=== PATIENT | male | born 1965 | race Caucasian/White ===

== ENCOUNTER → 2016-12-29 | Outpatient (CLI) | payer BC | LOC: GMA 16:27 | PROVIDERS: ATTEND Nurse Practitioner Family | DX: R53.82 Chronic fatigue, unspecified (principal) ==

== ENCOUNTER → 2017-01-01 | Outpatient (CLI) | payer BC ==
--- NOTE | 2017-01-04 09:54 | US ---
EXAM DESCRIPTION: Soft Tissue,Extremity CLINICAL HISTORY: 51 years, Male, MASS COMPARISON: None. FINDINGS: Scanning performed in the left leg posterior mid thigh region. In the area of the perceived mass there is a smooth oval 5.6 x 2.0 x 6.3 cm avascular lesion. This has sonographic features compatible with lipoma. IMPRESSION: Mass in the posterior left thigh has sonographic features of a lipoma . It should be safe to follow this lesion clinically. If clinical findings become more worrisome additional imaging can be obtained Electronically signed by: Magdaleno Hinton MD 01/04/2017 9:52 AM CDT
--- NOTE | 2017-01-04 10:06 | MRI ---
EXAM DESCRIPTION: Brain w/wo Contrast CLINICAL HISTORY: 51 years, Male, 257.2 elevated testosterone levels COMPARISON: None. FINDINGS: Standard triplanar sequences. Contrast enhanced sequences. Thin cuts through the pituitary gland. The diffusion-weighted sequence does not show acute infarct. Ventricles and sulci within normal limits. No abnormal contrast enhancement on the standard brain sequences. Dedicated views of the pituitary gland show normal enhancement without suspicious lesion. The coronal cross-section dimensions of the pituitary gland are 4.4 mm in height by about 1.0 cm in width. There is some mild ethmoid sinus mucosal thickening. IMPRESSION: 1. No acute infarct or mass in the brain. No abnormal contrast enhancement 2. Normal appearance of the pituitary gland without suspicious mass. Appropriate size of the gland. No abnormal contrast enhancement of the pituitary. Electronically signed by: Magdaleno Hinton MD 01/04/2017 10:04 AM CDT
== END | disposition home or self-care (01) ==
LOC: US 09:00
PROVIDERS: ATTEND Family Medicine
DX: E29.1 Testicular hypofunction (principal)

== ENCOUNTER → 2017-01-22 | Outpatient (CLI) | payer BC | LOC: GMAM 10:40 | PROVIDERS: ATTEND Family Medicine | DX: E03.9 Hypothyroidism, unspecified (principal); Z12.5 Encounter for screening for malignant neoplasm of prostate ==

== ENCOUNTER 2017-04-19 04:47 | Day surgery (SDC) | payer BC ==
[2017-04-19] MEDS ORDERED: LACTATED RINGERS 1,000 ML ONE (06:38)
[2017-04-19] MEDS ORDERED: LIDOCAINE 1% 10 ML VIAL INJ ONE (12:00)
[2017-04-19] MEDS ORDERED: PROPOFOL 200 MG/20 ML VIAL IV ONE (12:00)
[2017-04-19] MEDS ORDERED: MIDAZOLAM INJ 2 MG/2 ML VIAL ONE (12:13)
[2017-04-19] MEDS ORDERED: fentaNYL CITRATE INJ 50 MCG/ML AMP ONE (12:14)
[2017-04-19] MEDS ORDERED: ELECTROLYTE-A 1,000 ML IVS ONE (13:31)
--- NOTE | 2017-04-19 13:51 | OP ---
DATE OF PROCEDURE: 04/19/17 PREOPERATIVE DIAGNOSIS: 1. Age greater than 50 with need for screening colonoscopy. POSTOPERATIVE DIAGNOSIS: 1. Cauliflower appearing colon mass in the proximal transverse colon. 2. Small 6 mm polyp in the descending colon. 3. Colonoscopy completed to the cecum with good visualization. No other masses or lesions noted. PROCEDURE: 1. Colonoscopy. SURGEON: Kennedy Mario MD ANESTHESIA: Per Tee Merlos CRNA. COMPLICATIONS: None apparent. ESTIMATED BLOOD LOSS: Less than 10 mL. TECHNIQUE: The patient was brought to the GI lab and laid in the left lateral decubitus position. Digital rectal exam was performed and found to be normal. The prostate was normal in size. The colonoscope was inserted into the rectum and slowly through to the transverse colon and the proximal transverse colon. Just before we made the turn to the ascending colon, there was a fairly large appearing cauliflower looking lesion. The scope was advanced passed this lesion easily and on into the cecum with good visualization of the cecum. No masses were found there. The scope was then withdrawn back to the area with the cauliflower lesion. This was confirmed to be in the proximal transverse colon. Multiple straight forceps biopsies were taken from this lesion and a loop biopsy was also taken. The lesion was too big for complete excision. The area around the lesion was tattooed. Good hemostasis was noted. The scope was then withdrawn back into the descending colon. About midway through the descending colon, another polyp was noted. This was small, 4 mm in size, and was removed with straight forceps biopsy. Good hemostasis was noted. The scope was withdrawn into the rectum. In the rectum, retroflexion was attempted twice, unsuccessfully. The passageway was narrow and we decided the best course of action there was to withdraw slowly. I do feel like we had very good visualization of the rectum with no masses or lesions noted there. The scope was withdrawn. The patient tolerated the procedure well. He will be discharged home when he is cleared from an anesthesia standpoint. He will followup in one week for the pathology report and most probably will need surgical excision of this lesion in the colon. #[id number] [facility]
[2017-04-19 14:58] VITALS: O2SAT 98
[2017-04-19 15:04] VITALS: BP 124/82; TEMP 98.4
== END 2017-04-19 14:55 | disposition home or self-care (01) ==
LOC: AMB 04:47
PROVIDERS: ATTEND Family Medicine
DX: Z12.11 Encounter for screening for malignant neoplasm of colon (principal); D37.4 Neoplasm of uncertain behavior of colon; D12.4 Benign neoplasm of descending colon; K63.89 Other specified diseases of intestine; E03.9 Hypothyroidism, unspecified; E78.2 Mixed hyperlipidemia; F17.220 Nicotine dependence, chewing tobacco, uncomplicated; Z88.0 Allergy status to penicillin; Z79.899 Other long term (current) drug therapy
CPT/HCPCS: 00810; 45380; J2250; J3010; J3490; J7120

== ENCOUNTER → 2017-04-22 | Outpatient (CLI) | payer BC ==
--- NOTE | 2017-04-22 09:18 | CT ---
EXAM DESCRIPTION: Abdomen/Pelvis w/wo Contrast CLINICAL HISTORY: MASS OF COLON COMPARISON: February 07, 2010 TECHNIQUE: CT of the abdomen and Pelvis was performed with and without IV contrast. This exam was performed according to our departmental dose-optimization program, which includes automated exposure control, adjustment of the mA and/or kV according to patient size and/or use of iterative reconstruction technique. FINDINGS: Pre-IV contrast images show no lung base abnormality. There are few tiny calcified gallstones in the gallbladder without pericholecystic inflammation or fluid. No urinary tract calculus. Following IV contrast demonstration, no abdominal aortic aneurysm or dissection is identified. There is no pneumoperitoneum, ascites or adenopathy. The liver, spleen, pancreas, adrenals and kidneys are unremarkable. No dilated small bowel loops or mesenteric inflammation. No bladder wall thickening. There is occasional colonic diverticulosis without diverticulitis. No colonic wall thickening or mass is identified. The appendix is not seen, correlate with surgical history. No evidence of appendicitis. No concerning bone lesion. IMPRESSION: Colonic diverticulosis, but no diverticulitis or apparent colonic mass. Cholelithiasis without CT evidence of cholecystitis. If clinically suspicious, ultrasound is suggested. Electronically signed by: Pernell Tompkins MD 04/22/2017 9:17 AM ELECTRONIC SCALE ASSEMBLER AND TESTER
== END | disposition home or self-care (01) ==
LOC: CT 08:18
PROVIDERS: ATTEND Family Medicine
DX: K57.90 Diverticulosis of intestine, part unspecified, without perforation or abscess without bleeding (principal); K80.20 Calculus of gallbladder without cholecystitis without obstruction

== ENCOUNTER → 2017-04-23 | Outpatient (CLI) | payer BC | END | disposition home or self-care (01) | LOC: LAB.O 14:08 | PROVIDERS: ATTEND Family Medicine | DX: D49.0 Neoplasm of unspecified behavior of digestive system (principal) ==

== ENCOUNTER 2017-04-30 05:45 | Inpatient (IN) | payer BC ==
[2017-04-30] MEDS ORDERED: SODIUM CHL 0.9% 100ML MINI-BAG 100 ML IVPB ONE (07:13)
[2017-04-30] MEDS ORDERED: cefOXitin SODIUM 2 GM INJ IVPB ONE ×3 (07:13→20:12)
[2017-04-30] MEDS ORDERED: LACTATED RINGERS 1,000 ML ONE (07:13)
[2017-04-30] MEDS ORDERED: MIDAZOLAM INJ 5 MG/5 ML VIAL ONE (10:29)
[2017-04-30] MEDS ORDERED: fentaNYL CITRATE INJ 50 MCG/ML AMP ONE (10:29)
[2017-04-30] MEDS ORDERED: SUCCINYLCHOLINE CHLORIDE 200 MG/10 ML VIAL ONE (10:37)
[2017-04-30] MEDS ORDERED: LIDOCAINE 1% 10 ML VIAL INJ ONE (11:00)
[2017-04-30] MEDS ORDERED: raNITIdine HCL INJ 25 MG/ML VIAL IV ONE (11:00)
[2017-04-30] MEDS ORDERED: METOCLOPRAMIDE HCL INJ 10 MG/2 ML VIAL IV ONE (11:00)
[2017-04-30] MEDS ORDERED: VECURONIUM BROMIDE 10 MG VIAL IV ONE (11:00)
[2017-04-30] MEDS ORDERED: WATER FOR INJ 10 ML VIAL INJ ONE (11:00)
[2017-04-30] MEDS ORDERED: PROPOFOL 200 MG/20 ML VIAL IV ONE (11:00)
[2017-04-30] MEDS ORDERED: KETOROLAC TROMETHAMINE INJ 30 MG/ML VIAL IV ONE (11:00)
[2017-04-30] MEDS ORDERED: SODIUM CHLORIDE 0.9% 50 ML VIAL INJ ONE (11:00)
[2017-04-30] MEDS ORDERED: DEXAMETHASONE INJ 10 MG/ML VIAL IV ONE (11:00)
[2017-04-30] MEDS ORDERED: PHENYLEPHRINE INJ 1ML 10 MG/ML VIAL IV ONE (11:00)
--- NOTE | 2017-04-30 11:13 | HP ---
CHIEF COMPLAINT: Colon polyp and cholelithiasis. HISTORY OF PRESENT ILLNESS: The patient is a 51-year-old male who underwent a colonoscopy for screening at age 51. He was found to have a polyp estimated to be 3 to 4 cm by the endoscopist, Dr. Mario. Biopsies revealed high-grade dysplasia. He was brought to the Surgical Suite today for a colectomy, most a right hemicolectomy. He was also found during the workup to have cholelithiasis and since the tumor is said to be in the hepatic flexure of the colon and this area will have been operated, we will perform a cholecystectomy after the colectomy. He has had no history of blood in his stool or change in his bowel habits or weight loss. He also denies symptoms associated with biliary colic or cholecystitis. PAST MEDICAL HISTORY: 1. Hypertension. 2. Hypothyroidism. 3. Proteinuria. 4. Vitamin D deficiency. PAST SURGICAL HISTORY: 1. Appendectomy. 2. Umbilical hernia repair last year. CURRENT MEDICATIONS: 1. Synthroid. 2. Nasonex. 3. Previously on testosterone supplement. ALLERGIES: PENICILLIN. FAMILY HISTORY: Positive only for diverticular disease. Specifically, there were never any GI malignancies to his knowledge. SOCIAL HISTORY: The patient is . He has never smoked, but has used oral tobacco for years. He is trying to stop. There is no history of alcohol abuse or illicit drugs. REVIEW OF SYSTEMS: Noncontributory except as in the history of present illness. There are no urinary symptoms, upper respiratory symptoms, no chest pain or shortness of breath. PHYSICAL EXAMINATION: GENERAL: The patient is awake, alert, cooperative, and mildly anxious. VITAL SIGNS: The patient is currently afebrile. HEENT: Sclerae nonicteric. Mucous membranes moist. NECK: Without adenopathy. BACK: Without CVA tenderness. CHEST: Equal breath sounds bilaterally and are clear. HEART: Regular rate and rhythm. ABDOMEN: Soft, mildly distended. There is no significant tenderness or mass. RECTAL: Deferred. EXTREMITIES: Without cyanosis, clubbing or edema. LABORATORY: Normal liver function tests. Creatinine 1.17, glucose 157, potassium 4.1. Hemoglobin 16.9, white count 7.7, platelet count 306,000. He had a normal differential with 62% neutrophils. Urinalysis was clear with specific gravity 1.015. No protein or sugar. ASSESSMENT: 1. Polyp of the colon with severe dysplasia. 2. Cholelithiasis, asymptomatic. PLAN: The cholelithiasis is asymptomatic, but is in the area of the operation for the colon and we will proceed with both colectomy and cholecystectomy. He has undergone an antibiotic and mechanical bowel prep as an outpatient. #[id number] [facility]ITAL[facility]abel[facility]
[2017-04-30] MEDS ORDERED: HYDROmorphone HCL INJ 2 MG/ML VIAL ONE (11:20)
[2017-04-30] MEDS ORDERED: ELECTROLYTE A IVS ONE (11:31)
[2017-04-30] MEDS ORDERED: ELECTROLYTE-A 1,000 ML IVS ONE ×3 (12:47→15:26)
[2017-04-30] MEDS ORDERED: KETAMINE HCL 100 MG/ML VIAL ONE (14:55)
[2017-04-30] MEDS ORDERED: ROCURONIUM BROMIDE 10 MG/ML VIAL ONE (15:26)
[2017-04-30] MEDS ORDERED: SUGAMMADEX SODIUM 200 MG/2 ML VIAL IV ONE (15:43)
[2017-04-30] MEDS ORDERED: HYDROcodone 5MG/APAP 325MG 1 EA TAB PO PRN (16:04)
[2017-04-30] MEDS ORDERED: ONDANSETRON INJ 4 MG/2 ML VIAL IV PRN (16:06)
--- NOTE | 2017-04-30 16:58 | OP ---
DATE OF PROCEDURE: 04/30/17 PREOPERATIVE DIAGNOSIS: 1. Right colon polyp felt hepatic flexure. 2. Cholelithiasis. POSTOPERATIVE DIAGNOSIS: 1. Right colon polyp felt hepatic flexure. 2. Cholelithiasis. 3. Chronic cholecystitis. SURGICAL PROCEDURE: 1. Exploratory laparotomy. 2. Right hemicolectomy with ileotransverse colostomy. 3. Cholecystectomy with intraoperative cholangiography. SURGEON: Yogi Betancourt M.D. WHITEPRINTING MACHINE OPERATOR: None. ANESTHESIA: General endotracheal anesthesia. INDICATION FOR SURGERY: The patient is a 51 year-old male who on screening colonoscopy was found to have a mass which was felt to be at the hepatic flexure. 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 He also was found on a CT scan to have cholelithiasis and due to the fact that the surgery was going to be in the area of the gallbladder, it was felt that it was appropriate to do cholecystectomy also. So after the risks, benefits, and alternatives to the procedures and an antibiotic mechanical bowel prep was performed as an outpatient, the patient was brought to the Surgical Suite this morning for the procedures. FINDINGS AT TIME OF PROCEDURE: The mass and tattoo were noted at the hepatic flexure. They were measured from the cut specimen 7 cm from the distal margin. There were adhesions in the right lower quadrant from an appendectomy. The gallbladder had a mildly thickened wall and multiple small stones. Intraoperative cholangiography revealed free flow into the duodenum with no filling defects or strictures noted. No lesions were palpated or visualized in the liver. DESCRIPTION OF PROCEDURE: After adequate general endotracheal anesthesia was obtained the patient was prepped and draped in the usual sterile manner. A Eastman catheter was placed. A nasogastric tube was placed. A surgical time out was taken and then a midline incision was made from just below the xiphoid process to above the umbilicus trying to stay above his previous umbilical hernia repair. Dissection was carried down through the skin with a knife and then dissection of the subcutaneous tissue using electrocautery. The midline fascia was scored using electrocautery. The peritoneum was then elevated, opened and then divided for the length of the incision. When this was done, the abdomen was inspected with the previously noted findings. A Bookwalter retractor was then placed and the right colon was inspected. The lesion was identified both by palpation and by the tattoo. The area just proximal to the middle colic artery was identified. It was cleaned using electrocautery and blunt dissection and then a 0.5 inch Rajat drain was placed around the colon at that area for traction. When this was done, dissection was carried up where the colon was dissected free from the duodenum using clamps and ligatures of #2- 0 Vicryl and #3-0 Vicryl. The white line of Toldt was divided using electrocautery. At this point, the line of resection for the distal ileum was identified. It likewise was cleaned of mesentery using blunt dissection and it was divided using the GI stapling device. When this was done, the mesentery was taken down using clamps and ligatures of #2-0 Vicryl and #3-0 Vicryl and a suture ligature for the right colic artery. When this was done, the colon was divided at the previously identified space and the specimen was sent for pathological evaluation. The wound was noted to have adequate hemostasis. At this point the patient was placed in the reverse Trendelenburg position. Clamp were placed on the gallbladder after retractors were placed and the gallbladder was retracted laterally. The triangle of Calot was explored. The cystic artery was identified, clipped twice proximally and once distally and divided. Then the cystic duct was dissected free and clipped proximally. A small incision was made in the cystic duct. A cholangiogram catheter was introduced into the cystic duct and clipped in placed. Cholangiograms are then taken using fluoroscopy which revealed free flow into the duodenum with no filling defects or strictures noted. The cystic duct catheter was removed. The cystic duct was hemoclipped three times distally and divided between the hemoclips. The gallbladder was then dissected free from the gallbladder bed of the liver using electrocautery and blunt dissection. It was sent for pathologic evaluation. The gallbladder bed of the liver was inspected. There was good hemostasis noted. The bed of the humberto hepatis was inspected. There was no bile leak or bleeding noted. There was some bile staining from the small amount of bile leak from the gallbladder when the clip fell off the proximal cystic duct and this was irrigated and aspirated until there was no significant bile staining left. We irrigated over the liver and the subhepatic space. The anastomosis was then performed in the usual manner, an [id number] functional end-to-end isoperistaltic anastomosis. The bowel was stapled and then the enterostomy was closed with a running Salinas stitch of #3-0 Monocryl and interrupted Lambert sutures of #309 Prolene. When this was done, the mesentery was close with a running #3-0 Monocryl suture. The abdomen was then irrigated copiously with saline as was the right upper quadrant, the right lower quadrant and the anastomosis. The aspirate was noted to be clear. The nasogastric tube was checked for position in the stomach and at this point the midline fascia was closed with a running PDS from above and below with internal retention sutures of #1-0 Vicryl placed intermittently. The subcutaneous tissue was irrigated with saline. The skin edge was approximated with a skin stapler. Sterile pressure dressing was applied and an abdominal binder was applied. The patient was awakened and taken to the recovery room in stable condition. Estimated blood loss was approximately 250 to 300 mL. All sponge, needle and instrument counts were correct. #[id number] [facility]
[2017-04-30] MEDS: MORPHINE SULFATE INJ 10 MG/ML VIAL IV PRN ×3 (17:10→22:09)
[2017-04-30] MEDS: PANTOPRAZOLE SODIUM IV 40 MG VIAL IV SCH (17:54)
[2017-04-30] MEDS: DEX 5% W/NACL 0.45% 1000ML 1,000 ML IVS PRN (17:54)
[2017-04-30] MEDS ORDERED: SODIUM CHL 0.9% 50ML MIN-BAG+ 50 ML IVPB ONE (20:19)
[2017-04-30] MEDS: cefOXitin SODIUM 2 GM in SODIUM CHL 0.9% 50ML MIN-BAG+ 50 ML IVPB SCH (21:52)
[2017-05-01] MEDS: MORPHINE SULFATE INJ 10 MG/ML VIAL IV PRN ×7 (00:52→22:53)
[2017-05-01] MEDS: DEX 5% W/NACL 0.45% 1000ML 1,000 ML IVS PRN ×4 (02:02→20:19)
[2017-05-01] MEDS ORDERED: SODIUM CHL 0.9% 50ML MIN-BAG+ 50 ML IVPB ONE (05:27)
[2017-05-01] MEDS ORDERED: cefOXitin SODIUM 2 GM INJ IVPB ONE ×2 (05:28→13:35)
[2017-05-01] MEDS: cefOXitin SODIUM 2 GM in SODIUM CHL 0.9% 50ML MIN-BAG+ 50 ML IVPB SCH ×2 (05:33→13:47)
[2017-05-01] MEDS: SODIUM CHLORIDE 0.9% (FLUSH) 10 ML SYG IV PRN ×6 (08:05→22:53)
[2017-05-01] MEDS: ENOXAPARIN SODIUM 40 MG/0.4 ML SYG SUBCU SCH (09:41)
[2017-05-01] MEDS: IV SET AND CAP CHANGE INJ INJ SCH (09:42)
--- NOTE | 2017-05-01 09:54 | PCM.CORE ---
Physician DVT/VTE - Nurse DVT Assessment & Total Each Risk Factor Represents 2 Points: Malignancy (present/past), Major Surgery > 45 minutes Each Risk Factor Represents 1 Point: Age 41-60 Each Risk Factor is 1 Point: Obesity (BMI >25) DVT Assessment Score: 6 - 5 or more Very High Risk Treatments: Early Ambulation *, Sequential Compression Device Pharmacological: Enoxaparin 40mg SQ Daily
[2017-05-01] MEDS ORDERED: SODIUM CHLORIDE 0.9% 50ML 50 ML ONE (13:37)
--- NOTE | 2017-05-01 14:44 | CONS ---
DATE OF CONSULTATION: 05/01/17 HISTORY OF PRESENT ILLNESS: Mr. Avitia is a 51 year-old male patient who just recently had a coloscopy for screening at age 51. During the colonoscopy he was found to have a polyp that was measured between 3 to [address] Mario. Biopsies that were taken revealed a high grade dysplasia. The patient was seen by Dr. Betancourt and was taken to the Operating Room on 04/30/17 for an exploratory laparotomy. The patient had a right hemicolectomy and ileotransverse colostomy as well as cholecystectomy. He has a history of hypertension and hypothyroidism. Dr. Betancourt requested consultation to help manage the patient postoperatively in regards to his blood pressure. The patient was seen the day after surgery in stable condition. PAST MEDICAL HISTORY: 1. Hypertension. 2. Hypothyroidism. 3. Vitamin D deficiency. 4. History of diverticulitis. PAST SURGICAL HISTORY: 1. Appendectomy. 2. Umbilical hernia repair in 2016. CURRENT MEDICATIONS: 1. Levothyroxine 50 mcg daily. 2. Testosterone 200 mg IM weekly. 3. Nasacort 24 hour daily. ALLERGIES: PENICILLIN. FAMILY HISTORY: Positive for diverticular disease. No mention of history of colon cancers in immediate family. Father at age 72 secondary to complications from infection of a port. Also it was noted that type 2 diabetes mellitus and coronary artery disease. SOCIAL HISTORY: The patient is . He lives in [place], [place]. 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 He has no history of smoking tobacco but has used smokeless tobacco in the past for multiple years. He has no history of illicit drug use or alcohol abuse. REVIEW OF SYSTEMS: Noncontributory except as noted in History of Present Illness. PHYSICAL EXAMINATION: VITAL SIGNS: Temperature 97.6, pulse 110, blood pressure 124/72, respirations 20, satting 97% on nasal cannula at rest. GENERAL: The patient appears to be comfortable in no acute distress. He is alert and oriented. HEENT: Tympanic membranes are clear bilaterally. Oropharynx is pink and moist. There is an NG tube in place to low suction. NECK: Supple, non-tender with full range of motion. CHEST: Clear to auscultation without any rhonchi, wheezing or rales. HEART: Regular rate and rhythm without appreciable murmurs, gallops, or rubs. ABDOMEN: Has an abdominal binder in place. Bowel sounds were distant but present. He is utilizing splinting technique but denies any nausea or vomiting. EXTREMITIES: No clubbing, cyanosis or edema. NEUROLOGIC: He is alert and oriented times three. LABORATORY: Preoperative H&H was 16.9, hematocrit 49.0, platelet count 306,000 postoperatively. Hemoglobin was 14.4, hematocrit 42.8, initial white count was 7,700 with a postoperative white count of 15,100 with differential showing to be within normal limits and then a slight left shift after surgery. Chemistries on admission showed sodium 134, otherwise electrolytes were within normal limits. BUN 15, creatinine 1.17. Liver functions showed to be within normal limits. Postoperatively his electrolytes were within normal limits. Sodium 136, potassium 4.4, BUN 15, creatinine 1.15. Liver functions showed just a slight elevation of AST at 66. Urinalysis on admission showed to be within normal limits. No microbiology specimens were submitted. RADIOLOGY: No radiographic studies were available for review. ASSESSMENT: 1. Polyp of the colon with severe dysplasia requiring surgery with exploratory laparotomy and a right hemicolectomy with ileotransverse colostomy with additional cholecystectomy performed by Dr. Betancourt with pathology pending. 2. Cholelithiasis, asymptomatic as noted on initial CT studies with the patient having a cholecystectomy. 3. History of hypertension. 4. History of hypothyroidism on supplementation. 5. Seasonal allergies. PLAN: Will follow the patient as he progresses through his postoperative phase. Defer pain management and surgical decisions through postoperative management with Dr. Betancourt. Will continue to monitor the patient's vital signs and I's and O's closely and manage as needed. The patient is already started on a clear liquid diet. His NG tube is able to be clamped. He has been encouraged to ambulate. He is encouraged to do pulmonary toiletry to prevent any complications postoperatively. Anticipate length of stay to be at least 3 to 5 days pending clinical improvement and ultimately discharge decision per Dr. Betancourt. Until discharge, will continue to monitor and treat appropriately. Once discharged, he will need followup both with Dr. Betancourt and Dr. Mario as scheduled. #[id number] [facility]
[2017-05-01] MEDS: PANTOPRAZOLE SODIUM IV 40 MG VIAL IV SCH (16:38)
[2017-05-02] MEDS: SODIUM CHLORIDE 0.9% (FLUSH) 10 ML SYG IV PRN ×3 (02:05→21:10)
[2017-05-02] MEDS: MORPHINE SULFATE INJ 10 MG/ML VIAL IV PRN ×6 (02:06→21:10)
[2017-05-02] MEDS: DEX 5% W/NACL 0.45% 1000ML 1,000 ML IVS PRN ×3 (04:26→21:10)
[2017-05-02] MEDS: ENOXAPARIN SODIUM 40 MG/0.4 ML SYG SUBCU SCH (08:07)
[2017-05-02] MEDS ORDERED: MAGNESIUM HYDROXIDE 30 ML UD NG ONE (12:13)
[2017-05-02] MEDS: PANTOPRAZOLE SODIUM IV 40 MG VIAL IV SCH (16:10)
--- NOTE | 2017-05-02 17:43 | PN ---
DATE: 05/02/17 SUPERVISING PHYSICIAN: Jeff Marrero M.D. SUBJECTIVE: The patient remains afebrile. He has been ambulating multiple times. He has not passed any gas yet. He has had no nausea or vomiting. The NG tube remains in place. OBJECTIVE: VITAL SIGNS: Temperature 97.2, pulse 102, blood pressure 158/90, respirations 18, satting 94% on room air. I's and O's show a positive balance of 2321 with 4296 in, 1975 out. Weight 103.1 kg. CHEST: Lungs are clear to auscultation. HEART: Regular rate and rhythm. ABDOMEN: Abdominal binder remains in place but bowel sounds are present. EXTREMITIES: No clubbing, cyanosis or edema. NEUROLOGIC: He is alert and oriented times three. LABORATORY: White count is down to 14,400, hemoglobin 14.1, hematocrit 42.1, platelet count 250,000. Differential continues to show a small left shift. Chemistries show sodium 134, potassium 4.1, BUN 14, creatinine 1.0, glucose 128. AST is down to 51, all other liver functions showed to be within normal limits. ASSESSMENT: 1. Status post exploratory laparotomy and right hemicolectomy with ileotransverse colostomy with an additional cholecystectomy, postoperative day [address] Betancourt for a polyp of the colon showing severe dysplasia with pathology pending. 2. Cholelithiasis, asymptomatic as noted on initial CT study with the patient having a cholecystectomy, postoperative day 2. 3. History of hypertension not on any chronic hypertensive medications showing persistent mild hypertension likely secondary to postoperative fluid imbalance needing continued close monitoring. 4. History of hypothyroidism on supplementation. 5. Seasonal allergies. PLAN: Will continue to follow the patient closely. Will defer postsurgical management and fluid balance to Dr. Betancourt, and closely monitor vital signs. He may need some medication for hypertension, however hopefully with a shift in fluids and better fluid balance in the next 24 hours his blood pressure will show some improvement. He has been walking. His NG tube will be clamped today. He is going to get a dose of Milk of Magnesia. Will follow the patient closely and monitor his labs in the morning. Anticipate discharge at Dr. Betancourt' s discretion. Until then, continue to monitor and treat appropriately. #[id number] [facility]
[2017-05-03] MEDS: SODIUM CHLORIDE 0.9% (FLUSH) 10 ML SYG IV PRN ×3 (02:41→20:40)
[2017-05-03] MEDS: MORPHINE SULFATE INJ 10 MG/ML VIAL IV PRN ×6 (02:41→20:41)
[2017-05-03] MEDS: DEX 5% W/NACL 0.45% 1000ML 1,000 ML IVS PRN ×3 (05:35→22:32)
[2017-05-03] MEDS ORDERED: MAGNESIUM HYDROXIDE 30 ML UD NG ONE (08:39)
[2017-05-03] MEDS: ENOXAPARIN SODIUM 40 MG/0.4 ML SYG SUBCU SCH (08:55)
[2017-05-03] MEDS ORDERED: METOCLOPRAMIDE HCL INJ 10 MG/2 ML VIAL ONE (17:42)
[2017-05-03] MEDS: PANTOPRAZOLE SODIUM IV 40 MG VIAL IV SCH (17:58)
[2017-05-03] MEDS ORDERED: METOCLOPRAMIDE HCL INJ 10 MG/2 ML VIAL IV ONE (18:00)
[2017-05-03] MEDS: METOCLOPRAMIDE HCL INJ 10 MG/2 ML VIAL IV SCH (20:41)
[2017-05-04] MEDS: SODIUM CHLORIDE 0.9% (FLUSH) 10 ML SYG IV PRN ×4 (03:53→19:05)
[2017-05-04] MEDS: MORPHINE SULFATE INJ 10 MG/ML VIAL IV PRN ×3 (03:54→19:05)
[2017-05-04] MEDS ORDERED: LEVOTHYROXINE SODIUM 0.025 MG TAB ONE (05:11)
[2017-05-04] MEDS: DEX 5% W/NACL 0.45% 1000ML 1,000 ML IVS PRN ×3 (05:38→22:41)
[2017-05-04] MEDS ORDERED: LEVOTHYROXINE SODIUM 50 MCG PO SCH (07:00)
[2017-05-04] MEDS ORDERED: FUROSEMIDE INJ 20 MG/2 ML VIAL IV ONE (08:29)
[2017-05-04] MEDS: MAGNESIUM HYDROXIDE 30 ML UD NG ONE ×2 (09:12→11:59)
[2017-05-04] MEDS: METOCLOPRAMIDE HCL INJ 10 MG/2 ML VIAL IV SCH ×4 (09:13→21:07)
[2017-05-04] MEDS: ENOXAPARIN SODIUM 40 MG/0.4 ML SYG SUBCU SCH (09:13)
[2017-05-04] MEDS: IV SET AND CAP CHANGE INJ INJ SCH (09:14)
[2017-05-04] MEDS ORDERED: BISACODYL SUPPOSITORY 10 MG PR ONE ×2 (15:01→18:51)
--- NOTE | 2017-05-04 16:32 | PN ---
DATE: 05/04/17 SUPERVISING PHYSICIAN: Kennedy Mario M.D. SUBJECTIVE: The patient is sitting on the side of his bed. He is very nauseated. He just threw up. He denies any significant pain, chest pains or shortness of breath, but he complains that the NG tube is irritating his throat and gagging him, but he did feel better after he threw up. OBJECTIVE: VITAL SIGNS: He is afebrile, heart rate 106, it has been as high as 124. Blood pressure 157/94, respiratory rate 18, O2 sat is 98%. I's and O's shows an input of 3,582 with output of 1,250 for a negative I and O of 2332 mL. RESPIRATORY: Essentially clear to auscultation bilaterally. CARDIAC: Slightly tachycardic rate, regular rhythm. ABDOMEN: Round, it is diffusely tender. He has a dressing in place that is dry and intact with an abdominal binder on it. Bowel sounds are positive. NEUROLOGIC: He is awake, alert and oriented times three. LABORATORY: WBCs are 11.2 with hemoglobin 15.1 and hematocrit 45.5. Sodium 135 , potassium 4.2, chloride 105, carbon dioxide 21, BUN 13, creatinine 0.74 with glucose 143, calcium 8.3. LFTs are within normal limits. All other labs and films have been reviewed via the EMR. ASSESSMENT: 1. Polyp of the colon with severe dysplasia requiring surgery with exploratory laparotomy and a right hemicolectomy with ileotransverse colostomy with and additional cholecystectomy performed by Dr. Betancourt with pathology pending. 2. Cholelithiasis asymptomatic as noted in the initial CT studies with the the patient having a cholecystectomy. 3. History of hypertension. 4. History of hypothyroidism on supplementation. 5. Seasonal allergies. PLAN: We will continue present supportive care. We will defer the surgery decisions and pain management to Dr. Betancourt, General Surgeon. His NG tube has been clamped but due to his nausea Dr. Betancourt has ordered that it be put to suction. I have encouraged good pulmonary toilet as well as ambulation as tolerated. We will continue to monitor the patient closely and follow as needed. Dr. Mario is the collaborating physician and available for consultation. #[id number] [facility]
--- NOTE | 2017-05-04 16:41 | RAD ---
EXAM DESCRIPTION: Abdomen Flat Upright CLINICAL HISTORY: vomiting COMPARISON: CT abdomen pelvis April 22, 2017. FINDINGS: Supine and upright views of the abdomen. The enteric tube is seen with side-port and tip projecting over the expected location of the stomach. Pneumoperitoneum is present consistent with recent surgical procedure. Vertically oriented surgical luca are seen along the abdomen pelvis. Right upper quadrant surgical clips are present suggesting recent cholecystectomy. Mildly dilated loops of small large intestines seen with no evidence for dedifferentiation favorable for ileus. No organomegaly is seen. No pathologic calcifications. Phleboliths noted within the pelvis. Osseous structures are maintained. IMPRESSION: Postoperative ileus suspected. Satisfactory position of the enteric tube. Electronically signed by: Allen Araiza MD 05/04/2017 4:40 PM [employer]
[2017-05-04] MEDS: PANTOPRAZOLE SODIUM IV 40 MG VIAL IV SCH (17:27)
[2017-05-04] MEDS ORDERED: PHENOL THROAT SPRAY 180 ML BTTL MT PRN (18:46)
[2017-05-05] MEDS ORDERED: LEVOTHYROXINE SODIUM 0.025 MG TAB ONE (05:02)
[2017-05-05] MEDS: LEVOTHYROXINE SODIUM 0.025 MG TAB PO SCH (06:35)
[2017-05-05] MEDS: DEX 5% W/NACL 0.45% 1000ML 1,000 ML IVS PRN (06:37)
[2017-05-05] MEDS: ENOXAPARIN SODIUM 40 MG/0.4 ML SYG SUBCU SCH (09:10)
[2017-05-05] MEDS: METOCLOPRAMIDE HCL INJ 10 MG/2 ML VIAL IV SCH ×2 (09:10→12:15)
[2017-05-05] MEDS ORDERED: METOCLOPRAMIDE HCL INJ 10 MG/2 ML VIAL ONE (15:22)
[2017-05-05] MEDS: PANTOPRAZOLE SODIUM IV 40 MG VIAL IV SCH (16:10)
[2017-05-05] MEDS: METOCLOPRAMIDE HCL 5 MG TAB PO SCH ×2 (16:34→21:14)
[2017-05-05] MEDS: SODIUM CHLORIDE 0.9% (FLUSH) 10 ML SYG IV PRN (21:14)
[2017-05-06] MEDS: DEX 5% W/NACL 0.45% 1000ML 1,000 ML IVS PRN (05:30)
[2017-05-06] MEDS: METOCLOPRAMIDE HCL 5 MG TAB PO SCH ×2 (06:43→12:13)
[2017-05-06] MEDS: LEVOTHYROXINE SODIUM 0.025 MG TAB PO SCH (06:43)
[2017-05-06] MEDS: ENOXAPARIN SODIUM 40 MG/0.4 ML SYG SUBCU SCH (09:14)
[2017-05-06] MEDS: SODIUM CHLORIDE 0.9% (FLUSH) 10 ML SYG IV PRN (09:15)
--- NOTE | 2017-05-06 09:46 | PN ---
SUPERVISING PHYSICIAN: Kennedy Mraio MD DATE: 05/05/17 SUBJECTIVE: The patient continues to ambulate. He is passing some gas, has not had any nausea or vomiting. His NG tube does remain in place but he is tolerating his diet. OBJECTIVE: He remains afebrile. Temperature 97.5, pulse 104, blood pressure 145 /89, respirations 22, saturation 96% on room air. Weight 103.1 kg. I&O: negative balance of 1393 with 3107 in and 4500 out. He has had two bowel movements. CHEST: Lungs are clear to auscultation bilaterally. HEART: Regular rate and rhythm. ABDOMEN: Bowel sounds are present. Abdominal dressing remains in place. Dressing is clean and dry. NEUROLOGIC: He is alert and oriented x 3. LABORATORY: CBC shows white count of 8,800 with hemoglobin 51, hematocrit 44.6 , platelet count 318,000, differential has now resolved. Chemistries were not repeated as they were normal within the last 48 hours. RADIOLOGY: No additional radiographic studies were completed today. ASSESSMENT: 1. 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 Betancourt with pathology still pending. 2. Cholelithiasis asymptomatic as noted in the initial CT studies with the patient having a cholecystectomy. 3. History of hypertension. 4. History of hypothyroidism on supplementation. 5. Seasonal allergies. PLAN: I will continue to follow the patient an provide care as needed. We will defer to surgery decisions and pain management with Dr. Betancourt. The plan is that his NG tube has been clamped today with hopefully being able to be removed today or tomorrow. He has been ambulating. Will continue to encourage good pulmonary hygiene as well as continue ambulation. Will continue to follow closely with the patient as needed. Until discharge, monitor and treat appropriately. #[id number] [facility]
[2017-05-06 14:49] VITALS: BP 120/77; TEMP 98.6; O2SAT 99
--- NOTE | 2017-05-10 14:40 | DS ---
SUPERVISING PHYSICIAN: Kennedy Mario MD DISCHARGE DIAGNOSIS: 1. 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 Betancourt with pathology pending. 2. Cholelithiasis, asymptomatic as noted on initial CT study with the patient having a cholecystectomy as noted above. . 3. History of hypertension requiring close followup. 4. History of hypothyroidism on supplementation. 5. Seasonal allergies. HISTORY OF PRESENT ILLNESS: Mr. Avitia is a 51 year-old male patient who had just recently had a colonoscopy for screening at age 51. During the colonoscopy he was found to have a polyp that was measured between 3 to 4 cm. Biopsy was performed by Dr. Mario which revealed high grade dysplasia. The patient was seen by Dr. Betancourt and was taken to the operating room on 04/30 for an exploratory laparotomy. The patient had a right hemicolectomy and ileotransverse colostomy as well as a cholecystectomy. He has a history of hypertension and hypothyroidism and was followed during the hospitalization course postoperatively. LABORATORY STUDIES: Initial CBC showed to be within normal limits. Postoperatively, his hemoglobin and hematocrit showed 14.4 and 42.8 with white count going up to 15.1 prior to discharge and further treatment. The patient was discharged with a normal CBC with a white count of 8,800 with a hemoglobin of 15.1, hematocrit 44.6. Chemistries initially showed a sodium of 134 with a potassium of 4.1, BUN 15, creatinine 1.7 with initial bilirubin less than 0.2. AST normal, ALT normal. Postoperatively he showed a slight elevation in his AST , it went up to 66, however, this normalized and liver functions at discharge were within normal limits as well as electrolytes with his sodium being at 135, potassium 4.2. Urinalysis showed to be within normal limits. MICROBIOLOGY: There were no specimens submitted for review. RADIOLOGY: He had one abdominal x-ray on 05/04/17 and per radiology interpretation showed postoperative as suspected with satisfactory position of enteric tubing. PROCEDURE: 1. Exploratory laparotomy. 2. Right hemicolectomy with ileotransverse colectomy. 3. Cholecystectomy with intraoperative cholangiography. Please see Dr. Betancourt's report for surgical operative report for full details. HOSPITAL COURSE: The patient was admitted on 04/30/17 for exploratory laparotomy and the right hemicolectomy with ileotransverse colectomy and cholecystectomy performed by Dr. Betancourt. He tolerated surgery well and was followed through the hospital course. He showed good wound healing. He was able to advance his diet over the course of postoperative recovery and was able to have his NG tube removed. He was ambulatory showing no complications, no shortness of breath, no chest pain, no abdominal pains other than postoperative soreness. On the day of discharge he was tolerating a regular diet and having no nausea or vomiting, was showing to be hemodynamically stable with blood pressure 120/77, heart rate 70, he was afebrile at 98.6. Saturation 99% on room air. It was felt that the was clinically stable enough to be discharged to continue with outpatient treatment. PLAN: Mr. Avitia was discharged on 05/06/17 with instructions to followup with Dr. Betancourt n ext Wednesday after discharge or sooner if needed as well as Dr. Mario. He was to have wound care as per Dr. Betancourt's instructions and no tub bath, could shower and utilize abdomen binder as instructed and splinting as demonstrated for pain. He was to return to the hospital should he have any concerning symptoms and call . Discharge Medications: Pain control with Tylenol #3, given 15 tablets if needed every 4 hours. No other medications at discharge other than home medications that were prior to hospital. Diet: Regular diet as tolerated. Exercise: No lifting, no strenuous exercising. Avoid driving but he is to increase activity such as walking. Again, it was reemphasized that he was not to ge back to work and not to do any strenuous lifting until he was cleared by Dr. Betancourt. Condition on Discharge: Stable and improved. #[id number] [facility]
== END 2017-05-06 14:35 | disposition home or self-care (01) | DRG 330 ==
LOC: AMB 05:45 → MS 17:36
PROVIDERS: ADMIT Surgery; ATTEND Nurse Practitioner Family
PROC: 0DTF0ZZ Resection of Right Large Intestine, Open Approach (ICD-10-PCS; principal; 2017-04-30 10:30)
PROC: 0FT40ZZ Resection of Gallbladder, Open Approach (ICD-10-PCS; 2017-04-30 10:30)
PROC: BF13YZZ Fluoroscopy of Gallbladder and Bile Ducts using Other Contrast (ICD-10-PCS; 2017-04-30 10:30)
DX: D37.4 Neoplasm of uncertain behavior of colon (principal); K80.10 Calculus of gallbladder with chronic cholecystitis without obstruction; I10 Essential (primary) hypertension; E03.9 Hypothyroidism, unspecified; J30.9 Allergic rhinitis, unspecified; E55.9 Vitamin D deficiency, unspecified; F17.220 Nicotine dependence, chewing tobacco, uncomplicated; Z79.899 Other long term (current) drug therapy; Z88.0 Allergy status to penicillin

== ENCOUNTER → 2017-06-04 | Outpatient (CLI) | payer BC | END | disposition home or self-care (01) | LOC: GMAB 10:10 | PROVIDERS: ATTEND Family Medicine | DX: E03.9 Hypothyroidism, unspecified (principal); E29.1 Testicular hypofunction ==

== ENCOUNTER → 2017-11-12 | Outpatient (CLI) | payer BC | LOC: GMAM 11:18 | PROVIDERS: ATTEND Family Medicine | DX: E03.9 Hypothyroidism, unspecified (principal); E29.1 Testicular hypofunction; E55.9 Vitamin D deficiency, unspecified ==

== ENCOUNTER → 2017-12-24 | Outpatient (CLI) | payer BC ==
--- NOTE | 2017-12-24 14:07 | US ---
THYROID ULTRASOUND CLINICAL INFORMATION: Hypothyroidism TECHNIQUE: Thyroid sonography was performed. COMPARISON: None FINDINGS: Thyroid size: Right thyroid lobe measures 4.3 x 1.7 x 1.6 cm. Left thyroid lobe measures 3.9 x 1.5 x 1.2 cm. Texture: Coarse texture of the gland is seen. Thyroid appears somewhat small. Estimated total number of nodules >/=1 cm: 0 Nodules Single nodule in the anterior mid right thyroid lobe is seen which measures 0.9 x 0.7 x 0.3 cm. This is flattened and elongated in appearance. Biopsy is not recommended. IMPRESSION: Mildly coarsened texture of the thyroid gland. Single elongated flattened nodule in the anterior mid right thyroid lobe appears benign. Electronically signed by: Timbo Patel MD 12/24/2017 2:05 PM CDT
== END ==
LOC: US 09:45
PROVIDERS: ATTEND Family Medicine
DX: E03.9 Hypothyroidism, unspecified (principal); E04.1 Nontoxic single thyroid nodule

== ENCOUNTER 2018-02-26 20:17 | Emergency (ER) | payer BC ==
--- NOTE | 2018-02-26 20:34 | ED.PDOC ---
History of Present Illness - General Chief Complaint: GI Problem Time Seen by Provider: 02/26/18 20:23 Source: patient, RN notes reviewed Additional Information: 52 YEAR OLD HERE WITH PAIN IN THE RIGHT MEDIAL THIGH AND GROIN AFTER RIDING A HORSE THIS EVENING HE HAS HAD SIMILAR PAIN FOR THE PAST MONTH TODAY HE HEARD A POP ALMOST IMMEDIATELY FELT SEVERE PAIN IN THE RIGHT MEDIAL THIGH GROIN JUNCTION - History of Present Illness Timing/Duration: 1/2 hour Severity: moderate Improving Factors: nothing Worsening Factors: movement Associated Symptoms: denies symptoms Allergies/Adverse Reactions: Allergies Penicillins Allergy (Verified 03/12/16 10:06) Home Medications: Ambulatory Orders Levothyroxine Sodium 50 mcg PO ACBK 04/16/17 Testosterone 200 mg IM WKLY 04/16/17 Triamcinolone Acetonide (Nasal [Nasacort Allergy 24Hr] 55 mcg NA DAILY 04/27/17 Acetamin W/Cod #3 Tab [Tylenol w/CODEINE #3] 1 ea PO Q4HR PRN #15 tab 05/06/17 Review of Systems - Review of Systems Constitutional: States: no symptoms reported EENTM: States: no symptoms reported Respiratory: States: no symptoms reported Cardiology: States: no symptoms reported Gastrointestinal/Abdominal: States: no symptoms reported Genitourinary: States: no symptoms reported Musculoskeletal: States: no symptoms reported Skin: States: no symptoms reported Neurological: States: no symptoms reported Endocrine: States: no symptoms reported Past Medical History (General) - Patient Medical History Hx Seizures: No Hx Stroke: No Hx Asthma: No Hx of COPD: No Hx Cardiac Disorders: Yes - hypercholesterolemia Hx Congestive Heart Failure: No Hx Pacemaker: No Hx Hypertension: Yes Hx Diabetes: No Hx MRSA: No - Vaccination History Hx Influenza Vaccination: Yes - 2014 Hx Pneumococcal Vaccination: No - Social History Hx Tobacco Use: No Hx Chewing Tobacco Use: Yes Hx Alcohol Use: No Hx Substance Use: No Hx Physical Abuse: No Hx Emotional Abuse: No Family Medical History - Family History Father Family History: No Known Living Status: Hx Family Asthma: No Hx Family Congestive Heart Failure: Yes Hx Family Hypertension: No Hx Family Stroke: No Hx Cardiac Disease: No Hx Family Diabetes: Yes Hx Family Cancer: No Mother Living Status: Still Living Hx Family Asthma: No Hx Family Congestive Heart Failure: No Hx Family Hypertension: Yes Hx Family Stroke: No Hx Cardiac Disease: No Hx Family Diabetes: No Hx Family Cancer: No Physical Exam - Physical Exam General Appearance: Alert, Comfortable Eye Exam: bilateral normal Ears, Nose, Throat: hearing grossly normal Neck: non-tender, full range of motion, supple Respiratory: normal breath sounds, no respiratory distress, no accessory muscle use Cardiovascular/Chest: normal peripheral pulses, regular rate, rhythm, no edema Peripheral Pulses: radial,right: 2+ Back Exam: normal inspection, no CVA tenderness, no vertebral tenderness Extremity: other - TENDER OVER MEDIAL SIDE OF RIGHT THIGH OVER THE ADDUCTORS Neurologic: economic specialist II-XII nml as tested, no motor/sensory deficits, alert, normal mood/affect, oriented x 3, abnormal cerebellar tests Lymphatic: no adenopathy Departure - Departure Clinical Impression: Muscle strain Time of Disposition: 20:53 Disposition: Discharge to Home or Self Care Condition: Good Departure Forms: ED Discharge - Pt. Copy, Patient Portal Self Enrollment Referrals: Kennedy Mario MD [Primary Care Provider] - 1-2 Weeks Home Medications: Ambulatory Orders Levothyroxine Sodium 50 mcg PO ACBK 04/16/17 Testosterone 200 mg IM WKLY 04/16/17 Triamcinolone Acetonide (Nasal [Nasacort Allergy 24Hr] 55 mcg NA DAILY 04/27/17 Acetamin W/Cod #3 Tab [Tylenol w/CODEINE #3] 1 ea PO Q4HR PRN #15 tab 05/06/17
[2018-02-26] MEDS ORDERED: KETOROLAC TROMETHAMINE INJ 60 MG/2 ML VIAL IM ONE (20:35)
[2018-02-26 20:51] VITALS: BP 137/76; TEMP 97.8; O2SAT 96
== END 2018-02-26 21:04 | disposition home or self-care (01) ==
LOC: ER 20:17
DX: S76.911A Strain of unspecified muscles, fascia and tendons at thigh level, right thigh, initial encounter (principal); E78.00 Pure hypercholesterolemia, unspecified; Z88.0 Allergy status to penicillin; Z87.891 Personal history of nicotine dependence; X50.9XXA Other and unspecified overexertion or strenuous movements or postures, initial encounter; Y93.52 Activity, horseback riding

== ENCOUNTER → 2018-03-01 | Outpatient (CLI) | payer OTHER ==
--- NOTE | 2018-03-01 17:41 | US ---
EXAM DESCRIPTION: Soft Tissue,Extremity: ULTRASOUND. CLINICAL HISTORY: M66.251 patient riding a horse, roped a cow, felt pop in right groin area, painful. Has injured twice. COMPARISON: None Available. TECHNIQUE: Transcutaneous scanning: Mckeon-scale and Doppler modes. FINDINGS: On physical examination, discoloration seen in the scan from the region of the right inguinal area to the midline above the pubic area. 2.5 mm cystic structure seen in the region of pain. No abnormal vascularity. No definite lymph nodes. No herniation or fluid collection in the right inguinal canal. Right testicle and epididymis demonstrate normal signal. No fluid collection in the scrotal sac. No distinct solid mass or large calcification.. IMPRESSION: Small cystic structure in the right inguinal region but no inguinal hernia fluid collection. Normal appearance of the right testicle and epididymis. Consider follow-up MRI scan to evaluate for bone or soft tissue injury lower pelvis and upper right hip and right thigh. Findings were discussed with Dr. Mario at approximately 1100 hours today. Electronically signed by: Jason Quinones MD 03/01/2018 5:39 PM CDT
== END ==
LOC: US 10:25
PROVIDERS: ATTEND Family Medicine
DX: M66.251 Spontaneous rupture of extensor tendons, right thigh (principal)

== ENCOUNTER → 2018-03-02 | Outpatient (CLI) | payer BC, OTHER ==
--- NOTE | 2018-03-02 11:35 | MRI ---
EXAM DESCRIPTION: MRI pelvis without and with contrast CLINICAL HISTORY: Right groin pain. Injury 5 days ago riding a horse. Maribel a pop with acute onset of pain COMPARISON: None. TECHNIQUE: Multiplanar, multisequence MR images of the pelvis/right groin FINDINGS: Complete avulsion of the common adductor tendon on the right with retraction approximately 3.6 cm. Fluid filled gap between the retracted tendon and the right parasymphyseal pubic bone. Minimal edema at the site of avulsion. Diffuse intramuscular edema in the adductor muscles. 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 No focal osteochondral lesion of the hip. No diagnostic evidence of labral tear No pelvic soft tissue mass lesion, adenopathy or free fluid IMPRESSION: Complete avulsion of the common adductor tendon on the right from the parasymphyseal pubic bone with distal retraction about 3.6 cm Electronically signed by: Kennedy Storm MD 03/02/2018 11:34 AM CDT
== END ==
LOC: MRI 08:00
PROVIDERS: ATTEND Family Medicine
DX: M66.251 Spontaneous rupture of extensor tendons, right thigh (principal)

== ENCOUNTER → 2018-03-25 | Outpatient (CLI) | payer BC | LOC: GMAM 13:41 | PROVIDERS: ATTEND Family Medicine | DX: E03.9 Hypothyroidism, unspecified (principal); Z12.5 Encounter for screening for malignant neoplasm of prostate ==

== ENCOUNTER 2018-06-08 13:54 | Emergency (ER) | payer OTHER ==
[2018-06-08 14:44] VITALS: TEMP 98
[2018-06-08] MEDS ORDERED: predniSONE 20 MG TAB PO ONE (14:57)
[2018-06-08] MEDS ORDERED: MORPHINE SULFATE INJ 10 MG/ML VIAL IM ONE (14:57)
[2018-06-08] MEDS ORDERED: diazePAM 2 MG TAB PO ONE (14:57)
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
[2018-06-08 15:41] VITALS: BP 135/97; O2SAT 98
== END 2018-06-08 15:30 | disposition home or self-care (01) ==
LOC: ER 13:54
DX: S39.012D Strain of muscle, fascia and tendon of lower back, subsequent encounter (principal); M54.2 Cervicalgia; R20.2 Paresthesia of skin; E78.00 Pure hypercholesterolemia, unspecified; I10 Essential (primary) hypertension; E07.9 Disorder of thyroid, unspecified; Z87.891 Personal history of nicotine dependence; Z88.0 Allergy status to penicillin; V49.9XXD Car occupant (driver) (passenger) injured in unspecified traffic accident, subsequent encounter; Y92.410 Unspecified street and highway as the place of occurrence of the external cause
CPT/HCPCS: J2270; J7512

== ENCOUNTER → 2018-06-17 | Outpatient (CLI) | payer OTHER ==
--- NOTE | 2018-06-17 09:18 | MRI ---
EXAM DESCRIPTION: Lumbar Spine w/o Contrast : Magnetic Resonance Imaging. CLINICAL HISTORY: M54.9 COMPARISON: LUMBAR TECHNIQUE: Multiplanar, multiple standard sequences, non contrast MRI, lumbar spine. FINDINGS: L5-S1: Disc desiccation and minimal disc space loss. Posterior endplate Modic type II reactive changes midline and to the right of midline. Right side disc osteophyte complex encroaching on the exiting right L5 nerve with right foraminal stenosis. 2.5 mm grade 1 anterolisthesis. Posterior midline 4 mm disc bulge impressing on the midline thecal sac. Mild flavum ligament hypertrophy. Borderline mild central canal stenosis. Near stenosis right subarticular recess. Moderate left foraminal narrowing. L4-5: Minimal disc desiccation. Mild broad-based posterior disc bulge. Flavum ligament hypertrophy and mild facet arthrosis. Moderate central canal narrowing. Mild right foraminal narrowing and moderate left foraminal narrowing. L3-4: Minimal disc desiccation. Minimal bulging of the disc into the left foramen with mild narrowing bilaterally more on the left. Flavum ligament hypertrophy and mild central canal narrowing. L2-3: Disc desiccation with anterior bulging. No posterior bulging. Disc space preserved. Canal and foramina are patent. L1-2: Normal signal in the disc with disc space preserved. Anterior endplate hypertrophy. Canal and foramina are patent. Conus terminates at L1. T12-L1: Normal signal in the disc with disc space preserved. Canal and foramina are patent. No disc bulging. No significant scoliosis. Paravertebral soft tissues unremarkable.. Normal marrow signal in the remaining vertebral bodies and the posterior elements. Vertebral bodies are not compressed at any level. IMPRESSION: 1. Moderate spondylosis L5-S1 disc desiccation. Right side disc osteophyte complex encroaching on the foramen and the exiting right L5 nerve. Grade 1 anterolisthesis. Borderline mild central canal stenosis. Near stenosis of the right subarticular recess. Correlate for right L5 and S1 radiculopathy. 2. L4-5 disc bulge to the left foramen and moderate narrowing. Correlate for left L4 radiculopathy. Electronically signed by: Jason Quinones MD 06/17/2018 9:17 AM [employer]
== END ==
LOC: MRI 08:00
PROVIDERS: ATTEND Family Medicine
DX: M47.897 Other spondylosis, lumbosacral region (principal); M51.86 Other intervertebral disc disorders, lumbar region; M48.07 Spinal stenosis, lumbosacral region

== ENCOUNTER → 2018-10-14 | Outpatient (CLI) | payer BC | LOC: LAB.O 14:46 | PROVIDERS: ATTEND Family Medicine | DX: D75.1 Secondary polycythemia (principal) ==

== ENCOUNTER 2018-11-10 05:31 | Day surgery (SDC) | payer BC ==
[2018-11-10] MEDS ORDERED: LACTATED RINGERS 1,000 ML ONE (06:52)
[2018-11-10] MEDS ORDERED: LIDOCAINE 1% 10 ML VIAL INJ ONE (07:00)
[2018-11-10] MEDS ORDERED: PROPOFOL 200 MG/20 ML VIAL IV ONE (07:00)
[2018-11-10] MEDS ORDERED: MIDAZOLAM INJ 2 MG/2 ML VIAL ONE (11:42)
--- NOTE | 2018-11-10 13:32 | OP ---
DATE OF PROCEDURE: 11/10/18 INDICATION: History of right sided colon mass two years ago that was removed surgically. POSTOPERATIVE DIAGNOSIS: 1. Screening for colon cancer. 2. History of colon mass. PROCEDURE: 1. Colonoscopy completed through the cecum with ileocecal valve cannulated. 2. Polyp noted at 45 cm in the descending colon, 4 mm in size, removed with the straight forceps biopsy. SURGEON: Kennedy Mario MD ANESTHESIA: Per Tee Merlos CRNA. COMPLICATIONS: None apparent. ESTIMATED BLOOD LOSS: Less than 10 mL. TECHNIQUE: The patient was brought to the GI lab and laid in the left lateral decubitus position. Digital rectal exam was performed and found to be normal. He had normal rectal tone. Prostate size felt to be normal The colonoscope was advanced into the rectum and gradually through to the cecum. The cecum was well visualized and photographed. There was a good visualization of the ileocecal valve. The ileocecal valve was cannulated. The terminal ileum was visualized briefly. The scope was then brought back into the cecum and gradually back into the transverse colon. The ascending colon appeared to be predominantly removed and anastomotic lines were noted and appeared normal with no masses or polyps in that area. The scope was withdrawn back through the transverse colon which appeared normal and into the descending colon. In the mid to distal descending colon, there was a small, 4 mm polyp noted. This was biopsied and removed with the straight forceps and felt to be adequately removed. Good hemostasis was achieved. Several bites were taken of this area. The scope was withdrawn into the sigmoid colon and through to the rectum. The scope was retroflexed in the rectum. The ileal pectinate line was well visualized. There were no masses, polyps or abnormalities noted in this area. The scope was straightened and withdrawn. The patient tolerated the procedure well. The patient will be brought to the Recovery Room where he will stay until he is recovered from anesthesia standpoint. He will be discharged home at that time. DISPOSITION: Home when cleared from anesthesia. Due to his history of previous mass and a polyp found on this procedure, I would recommend repeat colonoscopy in 2 years. Pathology report could change that recommendation. #[id number] [facility]
[2018-11-10 13:50] VITALS: BP 82/37; TEMP 97.6; O2SAT 95
== END 2018-11-10 14:07 | disposition home or self-care (01) ==
LOC: AMB 05:31
PROVIDERS: ATTEND Family Medicine
DX: Z12.11 Encounter for screening for malignant neoplasm of colon (principal); K63.5 Polyp of colon; E78.2 Mixed hyperlipidemia; E03.9 Hypothyroidism, unspecified; N52.9 Male erectile dysfunction, unspecified; E55.9 Vitamin D deficiency, unspecified; D75.1 Secondary polycythemia; Z88.0 Allergy status to penicillin; Z87.19 Personal history of other diseases of the digestive system; Z79.899 Other long term (current) drug therapy
CPT/HCPCS: 00812; 45380; J2250; J3490; J7120

== ENCOUNTER → 2019-01-13 | Outpatient (CLI) | payer BC | LOC: GMAM 12:39 | PROVIDERS: ATTEND Family Medicine | DX: E03.9 Hypothyroidism, unspecified (principal); R30.0 Dysuria; E29.1 Testicular hypofunction; Z12.5 Encounter for screening for malignant neoplasm of prostate ==

== ENCOUNTER 2019-10-13 05:37 | Day surgery (SDC) | payer BC ==
[2019-10-13] MEDS ORDERED: PROPOFOL 200 MG/20 ML VIAL IV ONE (07:00)
[2019-10-13] MEDS ORDERED: LIDOCAINE 1% 10 ML VIAL INJ ONE (07:00)
[2019-10-13] MEDS ORDERED: LACTATED RINGERS 1,000 ML ONE (10:12)
[2019-10-13] MEDS ORDERED: LACTATED RINGERS 1,000 ML IVS ONE (10:20)
[2019-10-13] MEDS ORDERED: MIDAZOLAM INJ 2 MG/2 ML VIAL ONE (10:24)
[2019-10-13] MEDS ORDERED: fentaNYL CITRATE INJ 50 MCG/ML 2 ML AMP ONE (10:24)
--- NOTE | 2019-10-13 11:02 | OP ---
DATE OF PROCEDURE: 10/13/19 PREOPERATIVE DIAGNOSIS: 1. Possible gastroesophageal reflux disease. POSTOPERATIVE DIAGNOSIS: 1. Gastritis. PROCEDURE: 1. EGD with pyloric biopsy x2. SURGEON: Jeff Jarquin MD ANESTHESIA: General and local. FINDINGS: He had evidence of distal gastritis. The duodenum and upper stomach appeared normal. The esophagus appeared normal. COMPLICATIONS: None. ESTIMATED BLOOD LOSS: None. CONDITION: Stable. PLAN: Discharge. INDICATION: The patient has a history of GERD symptoms. He had never been scoped before. He is currently not on antacids. We consented him. PROCEDURE: The patient was brought to the Operating Suite in lateral position with bite block in place. General anesthesia was induced. The scope was easily inserted through the esophagus into the stomach to the third portion of the duodenum. Upon withdrawal, the duodenum appeared normal. There was evidence of gastritis in the distal stomach. Two biopsies were taken, one for H. pylori, one for pathology. On retroflexion, there was no significant hiatal hernia. The body and fundus appeared normal. Upon withdrawal, the transition zone appeared normal, as did the esophagus with no evidence of esophagitis, masses, stricturing, etc. The stomach was desufflated and the scope withdrawn. The patient tolerated the procedure and was taken to Recovery. He will followup and we will go over the pathology and make further recommendations. #[id number] cc: Kennedy Mario MD [facility]
[2019-10-13 11:38] VITALS: BP 106/75; TEMP 98.6; O2SAT 97
== END 2019-10-13 11:30 | disposition home or self-care (01) ==
LOC: AMB 05:37
PROVIDERS: ATTEND Surgery
DX: K29.70 Gastritis, unspecified, without bleeding (principal); K21.9 Gastro-esophageal reflux disease without esophagitis; E78.00 Pure hypercholesterolemia, unspecified; G47.33 Obstructive sleep apnea (adult) (pediatric); E03.9 Hypothyroidism, unspecified; Z85.038 Personal history of other malignant neoplasm of large intestine; Z87.891 Personal history of nicotine dependence; Z88.0 Allergy status to penicillin; Z79.899 Other long term (current) drug therapy
CPT/HCPCS: 00731; 43239; J2250; J3010; J3490; J7120

== ENCOUNTER → 2019-11-08 | Outpatient (CLI) | payer BC | LOC: GMAM 11:15 | PROVIDERS: ATTEND Family Medicine | DX: E03.9 Hypothyroidism, unspecified (principal); R73.9 Hyperglycemia, unspecified; I10 Essential (primary) hypertension ==